=== PATIENT | male | born 1965 | race Caucasian/White ===

== ENCOUNTER 2018-04-01 11:03 | Emergency (ER) | payer MEDICAID, SELFPAY ==
[2018-04-01 11:03] VITALS: BP 148/84; PULSE 80; RESP 16; TEMP 36.4; BMI 21.1
[2018-04-01 11:35] VITALS: BP 135/70; PULSE 85; RESP 14; O2SAT 98
--- NOTE | 2018-04-01 12:14 | ED.VISSUMM ---
- ER Visit Summary Date of Service: 04/01/18 Chief Complaint: [Dental pain] History of Present Illness: The patient is a 52 M [presents the emergency department with 2-3 days of dental pain. It is on the left upper and lower gumline. No trauma or broken teeth. He has had dental problems in the past. No fevers or chills or facial swelling. He is a smoker. He denies any other health problems] Physical Examination: [] Blood pressure 135/70 HEENT exam reveals diffuse gingivitis. He has severely decayed left maxillary molar and canines. There is tenderness to tooth percussion. There is no fluctuant abscess to drain. There is no facial swelling no sublingual edema Stensen's duct is within normal limits there is no lymphadenopathy Test Results: [] Emergency Department Course and Treatment: [Patient will be given chlorhexidine rinses amoxicillin and Flagyl. Orders report will be pulled and if appropriate will be given [address] [place]. He was given referrals for dentist and instructions for which to return to the emergency department] Treatment Plan: [] Disposition: [Is charge] Impression: [Gingivitis, dental pain] This note was generated with [employer] dictation software. It may contain incorrect words, spelling, and punctuation that were not noted in review of the chart prior to signing ED Disposition - Plan for ED Patient: Chief Complaint: Dental Referrals: Boo Wang MD [Primary Care Provider] -
--- NOTE | 2018-04-01 12:17 | ED.DCSUM_ITS ---
- ER Visit Summary Date of Service: 04/01/18 Chief Complaint: [Dental pain] History of Present Illness: The patient is a 52 M [presents the emergency department with 2-3 days of dental pain. It is on the left upper and lower gumline. No trauma or broken teeth. He has had dental problems in the past. No fevers or chills or facial swelling. He is a smoker. He denies any other health problems] Physical Examination: [] Blood pressure 135/70 HEENT exam reveals diffuse gingivitis. He has severely decayed left maxillary molar and canines. There is tenderness to tooth percussion. There is no fluctuant abscess to drain. There is no facial swelling no sublingual edema Stensen's duct is within normal limits there is no lymphadenopathy Test Results: [] Emergency Department Course and Treatment: [Patient will be given chlorhexidine rinses amoxicillin and Flagyl. Orders report will be pulled and if appropriate will be given 7 [place]. He was given referrals for dentist and instructions for which to return to the emergency department] Treatment Plan: [] Disposition: [Is charge] Impression: [Gingivitis, dental pain] This note was generated with [employer] dictation software. It may contain incorrect words, spelling, and punctuation that were not noted in review of the chart prior to signing ED Disposition - Plan for ED Patient: Chief Complaint: Dental Referrals: Boo Wang MD [Primary Care Provider] -
--- NOTE | 2018-04-01 12:18 | ED.DEP ---
ED Disposition - Plan for ED Patient: Chief Complaint: Dental Instructions: ED Tooth Pain, ED Trench Mouth Prescriptions: Hydrocodone Bitart/Apap 5-325 [[place] 5MG-325MG] 1 tablet PO Q6H PRN PRN 3 Days #7 tablet PRN Reason: Pain Metronidazole [Flagyl] 500 mg PO Q8H #21 tablet Amoxicillin [Amoxil] 500 mg PO TID 10 Days tab.chew Referrals: Boo Wang MD [Primary Care Provider] - 3-5 Days
--- NOTE | 2018-04-01 12:21 | DCINST.ED_ITS ---
ED Disposition - Plan for ED Patient: Chief Complaint: Dental Instructions: ED Tooth Pain, ED Trench Mouth Prescriptions: Hydrocodone Bitart/Apap 5-325 [[place] 5MG-325MG] 1 tablet PO Q6H PRN PRN 3 Days # 7 tablet PRN Reason: Pain Metronidazole [Flagyl] 500 mg PO Q8H #21 tablet Amoxicillin [Amoxil] 500 mg PO TID 10 Days tab.chew Referrals: Boo Wang MD [Primary Care Provider] - 3-5 Days
[2018-04-01 12:34] VITALS: BP 132/70; PULSE 88; RESP 14; O2SAT 99
[2018-04-01] MEDS: HYDROcodone Bitartrate/Apap 5/325 Tablet PO (12:34)
== END 2018-04-01 12:37 | disposition home or self-care (01) ==
PROVIDERS: Emergency Provider Emergency Medicine; Family Provider Internal Medicine; PCP Internal Medicine
DX: K05.10 Chronic gingivitis, plaque induced (principal); K02.9 Dental caries, unspecified; K08.89 Other specified disorders of teeth and supporting structures; F17.200 Nicotine dependence, unspecified, uncomplicated
CPT/HCPCS: 99282; A4216

== ENCOUNTER 2018-05-12 17:00 | Outpatient (RCR) | payer MEDICAID, SELFPAY ==
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
== END 2018-05-12 19:00 | disposition home or self-care (01) ==
LOC: PT 17:00
PROVIDERS: Family Provider Internal Medicine; PCP Internal Medicine; Visit Provider Anesthesiology Pain Medicine
DX: M54.9 Dorsalgia, unspecified (principal); M79.606 Pain in leg, unspecified; M54.2 Cervicalgia; M79.603 Pain in arm, unspecified
CPT/HCPCS: 97110; 97113; 97162; 97530

== ENCOUNTER → 2018-09-08 13:24 | Outpatient (CLI) | payer MEDICAID, SELFPAY ==
--- NOTE | 2018-09-08 13:45 | MRI_ITS ---
STUDY: MRI LUMBAR SPINE WITHOUT CONTRAST REASON FOR EXAM: Male, 53 years old. Back pain and leg pain. TECHNIQUE: Standardized fat and water weighted pulse sequences were obtained in the sagittal and axial planes. COMPARISON: Lumbar spine radiographs 07/28/2017. FINDINGS: T11-T12: (Sagittal only). Normal endplates. Mild disc space height narrowing. Normal disc hydration and morphology. Normal central canal and bilateral intervertebral neural foramina. T12-L1: (Sagittal only). Normal endplates. Normal disc height, hydration and morphology. Normal central canal and bilateral intervertebral neural foramina. Normal lumbar lordosis. There is no substantial scoliosis. Normal conus medullaris that terminates at the T12-L1 disc level. L1-2: Normal endplates. Normal disc height, hydration and morphology. Normal bilateral facet joints. Normal central canal and bilateral lateral recesses. Normal bilateral intervertebral neural foramina. L2-3: Normal endplates. Normal disc height, hydration and morphology. Normal bilateral facet joints. Normal central canal and bilateral lateral recesses. Normal bilateral intervertebral neural foramina. L3-4: Normal endplates. Minimal disc space height narrowing with small posterior annular bulging disc. Mild central canal stenosis. The AP canal diameter is 9 mm. Normal bilateral lateral recesses. Normal facet joints. Normal bilateral intervertebral neural foramina. L4-5: Normal endplates. Normal disc height, hydration and morphology. Normal central canal and bilateral lateral recesses. Mild left degenerative facet arthropathy. Normal right facet joint. L5-S1: Normal endplates. Mild disc space height narrowing. Moderate loss of disc hydration. Grade 1 anterolisthesis of L5 on S1. Bilateral L5 pars defects. Normal central canal. Moderately pronounced stenosis of the right intervertebral neural foramen with impingement of the right L5 nerve (series 2, images 10-11). Mild stenosis of the left intervertebral neural foramen. No impingement of the left L5 nerve. Normal facet joints. Normal visualized sacral ala. Normal visualized paraspinous soft tissue structures. MRI/Spine Lumbar (Routine) IMPRESSION: 1. Bilateral L5 pars defects with grade 1 anterolisthesis of L5 on S1, moderate pronounced stenosis of the right intervertebral neural foramen and impingement of the right L5 nerve (series 2, images 10-11). 2. Mild left L4-L5 degenerative facet arthropathy. 3. Minimal L3-L4 disc space height narrowing with small posterior bulging disc and mild central canal stenosis. 4. No MRI evidence of lumbar extruded disc fragment. Electronically Signed: Eddi Jin MD at 16:23 EDT , Service support ,
== END ==
PROVIDERS: Family Provider Internal Medicine; PCP Internal Medicine; Referring Provider Anesthesiology Pain Medicine; Visit Provider Anesthesiology Pain Medicine
DX: M54.9 Dorsalgia, unspecified (principal); M79.606 Pain in leg, unspecified
CPT/HCPCS: 72148

== ENCOUNTER → 2019-01-12 11:39 | Outpatient (CLI) | payer MEDICAID, SELFPAY ==
[2019-01-12 11:07] VITALS: BMI 21.1
[2019-01-12 12:39] LABS: Absolute Lymphocyte Count 2.67 X10^3/ul (0.83-4.51); Basophil# 0.02 X10^3/uL; Basophil% 0.3 % (0-1); Eosinophil# 0.31 X10^3/uL; Eosinophils% 4.7 % (0-5); Hematocrit 39.8 % (40-54); Lymphocyte # 2.67 X10^3/ul (4.0); Lymphocyte % 40.8 % (19-41); Mean Corp Hgb Conc 32.7 g/gl (32-36); Mean Corpuscular Hgb 30.1 pg (27.0-32.0); Mean Corpuscular Volume 92.1 fL (80-94); Mean Platelet Vol. 9.1 fl (6.2-12.0); Monocyte# 0.57 X10^3/uL; Monocyte% 8.7 % (0-10); Neutrophil # 2.98 X10^3/uL (2.7-7.7); Neutrophil % 45.5 % (47-70); Platelet Count 279 K/mm3 (150-450); RBC Distribution Width CV 13.1 % (11.6-14.6); Red Blood Count 4.32 M/mm3 (4.6-6.2); White Blood Count 6.6 K/mm3 (4.4-11.0)
[2019-01-12 12:40] LABS: POSITIVE COUNT NO; POSITIVE DIFFERENTIAL NO; POSITIVE MORPHOLOGY NO
[2019-01-12 12:53] LABS: AST(SGOT) 29 U/L (15-37); Alanine Aminotransfer ALT/SGPT 35 U/L (16-61); Albumin, Serum 3.5 g/dL (3.2-5.0); Alkaline Phosphatase 76 U/L (45-117); Anion Gap 5 (5-15); BUN 16 mg/dL (7-18); BUN/Creat Ratio 19.4 RATIO (10-20); Calcium,Total 8.4 mg/dL (8.5-10.1); Chloride 103 mmol/L (98-107); Cholesterol 144 mg/dL (200); Creatinine, Serum 0.82 mg/dL (0.70-1.30); EST Glomerular Filtration Rate 104 mL/min (>60); Est Glom Filt Rate - Afr Amer 125 mL/min (>60); Globulin 3.4 g/dL (2.2-4.2); Glucose 78 mg/dL (74-106); High Density Lipoprotein 62 mg/dL; PSA,Total - Annual Screen 0.59 ng/mL (0.00-4.00); Potassium 3.9 mmol/L (3.5-5.1); Protein, Total 6.9 g/dL (6.4-8.2); Sodium Level 139 mmol/L (136-145); Triglycerides 104 mg/dL; Very Low Density Lipoprotein 21 mg/dL (5-40)
== END ==
PROVIDERS: Family Provider Internal Medicine; PCP Internal Medicine; Visit Provider Internal Medicine
DX: Z00.00 Encounter for general adult medical examination without abnormal findings (principal); Z12.5 Encounter for screening for malignant neoplasm of prostate
CPT/HCPCS: 36415; 80053; 80061; 84153; 85025; G0103

== ENCOUNTER → 2019-03-02 07:17 | Outpatient (CLI) | payer MEDICAID, SELFPAY ==
[2018-12-15 13:58] VITALS: BMI 21.1
[2019-01-12 11:07] VITALS: BMI 21.1
== END ==
PROVIDERS: Family Provider Internal Medicine; PCP Internal Medicine; Referring Provider Surgery; Visit Provider Surgery
DX: Z01.818 Encounter for other preprocedural examination (principal)

== ENCOUNTER → 2019-03-09 09:22 | Outpatient (CLI) | payer MEDICAID, SELFPAY ==
[2019-03-09 09:01] VITALS: BMI 21.1
--- NOTE | 2019-03-09 09:27 | RAD_ITS ---
STUDY: X-RAY - LUMBAR SPINE REASON FOR EXAM: Male, 53 years old. Pain. TECHNIQUE: 4 view(s) of the lumbar spine were obtained. COMPARISON: None FINDINGS: There is grade 1 L5-S1 listhesis. This probably is secondary to bilateral L5 spondylolysis however oblique images are not submitted to validate that. There is mild to moderate L5-S1 degenerative disc disease. There is minimal spondylosis throughout. There is no acute osseous abnormality. There is stable positioning on extension and flexion relative to neutral. There is no substantial scoliosis. The soft tissue structures are unremarkable. RAD/L/S Spine Min 4 Views IMPRESSION: Probably degenerative grade 1 L5-S1 listhesis. However oblique images are not obtained on this exam to evaluate if the listhesis is secondary to L5 spondylolysis. Minimal diffuse spondylosis. No evident acute osseous abnormality. Minimal bilateral hip osteoarthrosis. Mild L5-S1 degenerative disc disease. Electronically Signed: Jefry Boyd MD at 16:34 EDT , Service support ,
== END ==
PROVIDERS: Family Provider Internal Medicine; PCP Internal Medicine; Referring Provider Orthopaedic Surgery; Visit Provider Orthopaedic Surgery
DX: M54.5 Low back pain (principal)
CPT/HCPCS: 72110

== ENCOUNTER 2019-04-21 09:30 | Outpatient (RCR) | payer MEDICAID, SELFPAY ==
[2019-03-19 15:05] VITALS: BMI 21.1
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
== END 2019-04-21 19:00 | disposition home or self-care (01) ==
LOC: OT 09:30
PROVIDERS: Family Provider Internal Medicine; PCP Internal Medicine; Referring Provider Nurse Practitioner Family; Visit Provider Nurse Practitioner Family
DX: M54.9 Dorsalgia, unspecified (principal); G89.29 Other chronic pain
CPT/HCPCS: 97165; 97166; 97750

== ENCOUNTER → 2019-05-18 07:28 | Outpatient (CLI) | payer MEDICAID, SELFPAY ==
[2019-05-12 14:14] VITALS: BMI 21.1
--- NOTE | 2019-05-18 07:30 | RAD_ITS ---
STUDY: X-RAY - CERVICAL SPINE REASON FOR EXAM: Male, 53 years old. Neck pain. TECHNIQUE: 3 view(s) of the cervical spine were obtained. COMPARISON: None FINDINGS: Normal anterior atlantoaxial articulation. Normal odontoid process. Normal cervical lordosis. Normal vertebral bodies and endplates. Normal disc space heights. There are atherosclerotic vascular calcifications of the carotid arteries. There is no demonstrated fracture of the cervical spine. RAD/Cerv Spine 2 or 3 Views IMPRESSION: No significant abnormality. Electronically Signed: Addy Arteaga MD at 16:58 EDT , Service support ,
== END ==
PROVIDERS: Family Provider Internal Medicine; PCP Internal Medicine; Referring Provider Internal Medicine; Visit Provider Internal Medicine
DX: M54.2 Cervicalgia (principal)
CPT/HCPCS: 72040

== ENCOUNTER 2020-01-24 09:45 | Emergency (ER) | payer MEDICAID, SELFPAY ==
[2019-05-12 14:14] VITALS: BMI 21.1
[2020-01-24 09:46] VITALS: BP 126/72; PULSE 71; RESP 17; TEMP 36.8; O2SAT 98; BMI 20.4
--- NOTE | 2020-01-24 09:59 | CT_ITS ---
STUDY: CT ABDOMEN AND PELVIS WITHOUT CONTRAST REASON FOR EXAM: Male, 54 years old. N/V X 1 WEEK, MIDDLE ABD PAIN RADIATION DOSAGE (If Supplied By Facility): CTDIvol = ( 4.31 ) mGy, DLP = ( 185.38 ) mGycm TECHNIQUE: Transaxial images were obtained from the dome of the diaphragm to the symphysis pubis without oral contrast, and without intravenous contrast. Sagittal and coronal images were reconstructed. Individualized dose optimization techniques were used for this CT. COMPARISON: None. FINDINGS: There is evidence of emphysematous changes at the lung bases. Mild scarring in the anterior aspect of the right lower lobe. The visualized portions of the heart are within normal limits. There is a 7 cm x 4.4 cm fluid collection in the subcapsular space overlying the right lobe of the liver. This may represent a resolving subcapsular hematoma. Normal gallbladder and extrahepatic biliary system. Normal spleen. Normal pancreas. Normal bilateral adrenal glands. Normal right kidney. Normal left kidney. Normal visualized stomach. Normal small intestine. There are multiple colonic diverticula consistent with diverticulosis. The appendix is visualized and appears normal. There is diffuse atherosclerotic calcification of the abdominal aorta, without a demonstrated aneurysm. Normal inferior vena cava. Normal retroperitoneum. Normal urinary bladder. There are prostatic calcifications. Phleboliths are seen within the pelvis. Normal abdominal wall. There are degenerative changes of the visualized lumbar spine. There is a grade 1 spondylolisthesis of L5 on S1 with spondylolysis of the pars interarticularis of the L5 vertebrae with the space narrowing and disc degeneration at the L5-S1 level. CT/Abdomen/Pelvis without Cont IMPRESSION: Findings suggestive of a 7 cm x 4.4 cm fluid collection in the subcapsular space overlying the right lobe of the liver as described. This may represent a resolving hematoma. Electronically Signed: Saturnino Miller, at 11:35 EDT , Service support ,
[2020-01-24 10:04] LABS: Absolute Lymphocyte Count 1.76 X10^3/uL (0.83-4.51); Absolute Neutrophil Count 4.7 X10^3/uL (2.0-7.7); Basophil# 0.03 X10^3/uL; Basophil% 0.4 % (0-1); Eosinophil# 0.22 X10^3/uL; Hematocrit 41.1 % (40-54); Hemoglobin 13.5 g/dL (13.0-16.5); Lymphocyte # 1.76 X10^3/ul (4.0); Lymphocyte % 24.3 % (19-41); Mean Corp Hgb Conc 32.8 g/dL (32-36); Mean Corpuscular Hgb 29.3 pg (27.0-32.0); Mean Corpuscular Volume 89.3 fL (80-94); Mean Platelet Vol. 8.8 fl (6.2-12.0); Monocyte# 0.52 X10^3/uL; Monocyte% 7.2 % (0-10); NRBC Flagged by Analyzer 0 % (0-5); Neutrophil # 4.71 X10^3/uL (2.7-7.7); Platelet Count 309 K/mm3 (150-450); RBC Distribution Width CV 14.1 % (11.6-14.6); RBC Distribution Width SD 45.7 fl (35.1-43.9); White Blood Count 7.3 K/mm3 (4.4-11.0)
[2020-01-24] MEDS: 0.9% Normal Saline 1,000 ML 1000 ML IV (10:10)
[2020-01-24] MEDS: Ondansetron 4 MG/2 ML Vial IV (10:11)
[2020-01-24 10:32] LABS: ALB/GLOB Ratio 1.2 RATIO (0.9-2.4); AST(SGOT) 13 U/L (15-37); Alanine Aminotransfer ALT/SGPT 22 U/L (16-61); Albumin, Serum 3.7 g/dL (3.2-5.0); Alkaline Phosphatase 52 U/L (45-117); Anion Gap 4 (5-15); BUN 15 mg/dL (7-18); BUN/Creat Ratio 18.3 RATIO (10-20); Calcium,Total 8.6 mg/dL (8.5-10.1); Chloride 103 mmol/L (98-107); Creatinine, Serum 0.82 mg/dL (0.70-1.30); EST Glomerular Filtration Rate 104 mL/min (>60); Est Glom Filt Rate - Afr Amer 125 mL/min (>60); Estimated Creatinine Clearance 86.23 ml/min; Globulin 3.1 g/dL (2.2-4.2); Glucose 96 mg/dL (74-106); Lipase 327 U/L (73-393); Potassium 3.7 mmol/L (3.5-5.1); Protein, Total 6.8 g/dL (6.4-8.2); Sodium Level 140 mmol/L (136-145)
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
--- NOTE | 2020-01-24 11:11 | EKG12_ITS ---
Test Reason : Blood Pressure : / mmHG Vent. Rate : 060 BPM Atrial Rate : 060 BPM P-R Int : 148 ms QRS Dur : 098 ms QT Int : 592 ms P-R-T Axes : 084 020 013 degrees QTc Int : 592 ms Normal sinus rhythm with sinus arrhythmia Nonspecific T wave abnormality Abnormal ECG Confirmed by OMEGA VALENZUELA, HSELLY ([id number]), material expeditor MANJU JOHNSON ([id number]) on 01/25/2020 1:39:54 PM Referred By: GREGORY Confirmed By:SHELLY DUFF MD
--- NOTE | 2020-01-24 12:27 | DCINST.ED_ITS ---
ED Disposition - Plan for ED Patient: Instructions: VOMITING (6y-Adult), ABDOMINAL PAIN, Unkown Cause, (Male) Prescriptions: Ondansetron [Zofran Odt] 4 mg PO Q8H PRN PRN #10 tab PRN Reason: Nausea Transmission Status: Pending to [id number] Referrals: Boo Wang MD [Primary Care Provider] - 3-5 Days
[2020-01-24 13:01] VITALS: BP 129/76; PULSE 62; RESP 14
[2020-01-24 13:03] VITALS: BP 129/76; PULSE 62; RESP 14
== END 2020-01-24 13:05 | disposition home or self-care (01) ==
LOC: ED 11:10
PROVIDERS: Emergency Provider Emergency Medicine; PCP Internal Medicine
DX: R11.0 Nausea (principal); R10.9 Unspecified abdominal pain; Z72.0 Tobacco use
CPT/HCPCS: 74176; 80053; 83690; 84484; 85025; 93005; 96361; 96374; 99283; J7030; A4216; J2405

== ENCOUNTER 2021-10-28 13:34 | Emergency (ER) | payer MEDICAID, SELFPAY ==
[2021-10-28 13:36] VITALS: BP 138/59; PULSE 101; RESP 18; TEMP 37.1; O2SAT 100; BMI 22.1
--- NOTE | 2021-10-28 13:53 | ED.RN ---
pt reports he cannot wait to be seen for his dental pain and that he is leaving.
== END 2021-10-28 13:40 | disposition left against medical advice (07) ==
LOC: ED 13:41
PROVIDERS: PCP Internal Medicine
DX: K08.89 Other specified disorders of teeth and supporting structures (principal); Z53.21 Procedure and treatment not carried out due to patient leaving prior to being seen by health care provider

== ENCOUNTER 2023-11-09 19:32 | Emergency (ER) | payer MEDICAID, SELFPAY ==
[2023-11-09 19:33] VITALS: BP 159/107; PULSE 104; RESP 18; TEMP 36.1; O2SAT 97; BMI 20.8
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
[2023-11-09 20:46] LABS: Absolute Lymphocyte Count 1.93 X10^3/uL (0.83-4.51); Absolute Neutrophil Count 5.6 X10^3/uL (2.0-7.7); Basophil# 0.03 X10^3/uL; Basophil% 0.4 % (0-1); Eosinophil# 0.02 X10^3/uL; Eosinophils% 0.2 % (0-5); Hematocrit 52.1 % (40-54); Lymphocyte # 1.93 X10^3/ul (0.83-4.51); Lymphocyte % 23.1 % (19-41); Mean Corp Hgb Conc 32.6 g/dL (32-36); Mean Corpuscular Hgb 29.2 pg (27.0-32.0); Mean Corpuscular Volume 89.4 fL (80-94); Mean Platelet Vol. 9.2 fl (6.2-12.0); Monocyte# 0.74 X10^3/uL; Monocyte% 8.8 % (0-10); NRBC Flagged by Analyzer 0 % (0-5); Neutrophil # 5.63 X10^3/uL (2.7-7.7); Neutrophil % 67.3 % (47-70); Platelet Count 352 K/mm3 (150-450); RBC Distribution Width CV 13.1 % (11.6-14.6); RBC Distribution Width SD 42.6 fl (35.1-43.9); Red Blood Count 5.83 M/mm3 (4.6-6.2); White Blood Count 8.4 K/mm3 (4.4-11.0)
[2023-11-09] MEDS: Ondansetron 4 MG/2 ML Vial IV (20:48)
[2023-11-09] MEDS: 0.9% Normal Saline (1000mL) 1,000 ML 1000 ML IV (20:48)
[2023-11-09] MEDS: Morphine 4 MG/ML Syringe IV (20:49)
[2023-11-09 21:16] LABS: AST(SGOT) 15 U/L (15-37); Alanine Aminotransfer ALT/SGPT 20 U/L (16-61); Albumin, Serum 3.9 g/dL (3.2-5.0); Alkaline Phosphatase 64 U/L (45-117); Anion Gap 5 (5-15); BUN 20 mg/dL (7-18); BUN/Creat Ratio 18.5 RATIO (10-20); Chloride 95 mmol/L (98-107); Creatinine, Serum 1.08 mg/dL (0.70-1.30); EST Glomerular Filtration Rate 75 mL/min (>60); Est Glom Filt Rate - Afr Amer 90 mL/min (>60); Estimated Creatinine Clearance 63.62 ml/min; Globulin 4.1 g/dL (2.2-4.2); Glucose 92 mg/dL (74-106); Lipase 79 U/L (13-75); Potassium 4.3 mmol/L (3.5-5.1); Sodium Level 133 mmol/L (136-145)
--- NOTE | 2023-11-09 22:00 | CT_ITS ---
STUDY: CT ABDOMEN AND PELVIS WITH CONTRAST REASON FOR EXAM: Male, 58 years old. Abdominal pain -- IV PO Contrast RADIATION DOSAGE (If Supplied By Facility): CTDIvol = ( 7.63 ) mGy, DLP = ( 302.61 ) mGycm TECHNIQUE: Transaxial images were obtained from the dome of the diaphragm to the symphysis pubis without oral contrast. Oral and amp; IV Gastrografin and amp; 100mL Isovue-300 was administered. Sagittal and coronal images were reconstructed. Individualized dose optimization techniques were used for this CT. COMPARISON: 01/24/2020. FINDINGS: The visualized lung bases are unremarkable. The visualized portions of the heart are within normal limits. Redemonstrated is cystic/fluid collection along the lateral aspect of the right liver lobe measuring 9.0 x 6.0 cm, minimal increased in size in the interval. Additional low-attenuation structures with Hounsfield units suggestive of liver cysts, largest in the left liver lobe measuring 1 cm, new in the interval. Remainder of the liver unremarkable. Slightly over distended gallbladder otherwise unremarkable gallbladder. No significant biliary distention. Normal spleen. Normal pancreas. Normal bilateral adrenal glands. Normal right kidney. Left upper no pole simple cyst measuring 1.3 cm. Otherwise normal left kidney. Normal visualized stomach. Normal small intestine. Normal colon. The appendix is visualized and appears normal. There is diffuse atherosclerotic calcification of the abdominal aorta, without a demonstrated aneurysm. Normal inferior vena cava. Normal retroperitoneum. There is slightly over distended. Mild prostate enlargement. Normal abdominal wall. Mild multilevel spondylosis/degenerative disease. Grade 1 anterolisthesis of L5 on S1 with bilateral pars defect of L5. CT/Abdomen/Pelvis WITH Contrast IMPRESSION: Multiple cystic structures at the level of the liver, largest measuring up to 9.0 cm, slightly progressed in the interval. Left upper renal pole simple cyst, no further follow-up imaging recommended. Otherwise no acute process identified. Electronically Signed: Jeaneth Calderon MD at 22:43 EST ,
[2023-11-09 22:26] LABS: Bacteria 0 SEEN /hpf (None Seen); Mucous, Urine 0 SEEN /hpf (<or=2+); Red Blood Cells-Urine 0 SEEN /hpf (0-5); Squamous Epithelial Cells - UA 0 SEEN /hpf (0-5); White Blood Cells 0 SEEN /hpf (0-5)
[2023-11-09 22:32] LABS: Color, Urine Yellow (Yellow); Glucose, Dipstick Normal (Normal); Ketone-Dipstick 50 mg/dl (Negative); Leukocyte Esterase-Dipstick Negative /ul (Negative); Nitrite-Dipstick Negative (Negative); Occult Blood-Urine 10 /ul (Negative); Protein-Dipstick Negative (Negative); Urine Bilirubin Dipstick Negative (Negative); Urine Clarity Clear (Clear); Urine Urobilinogen Normal (Normal)
[2023-11-10] MEDS: Morphine 4 MG/ML Syringe IV (00:16)
[2023-11-10 00:38] VITALS: BP 144/88; PULSE 89; RESP 16; O2SAT 97
== END 2023-11-10 00:40 | disposition home or self-care (01) ==
PROVIDERS: Emergency Provider Emergency Medicine; PCP Internal Medicine; Visit Provider Emergency Medicine
DX: R10.13 Epigastric pain (principal); J44.9 Chronic obstructive pulmonary disease, unspecified; N28.1 Cyst of kidney, acquired; K76.89 Other specified diseases of liver; R53.1 Weakness; R11.2 Nausea with vomiting, unspecified; M54.9 Dorsalgia, unspecified; F17.210 Nicotine dependence, cigarettes, uncomplicated
CPT/HCPCS: 74177; 80053; 81001; 83690; 85025; 96361; 96374; 96375; 96376; 99283; Q9967; A4216; J2405

== ENCOUNTER → 2025-06-06 | Outpatient (CLI) | payer MEDICAID, SELFPAY ==
--- OUTSIDE RECORDS SUMMARY | 2025-06-06 11:24 | XMS RPT_ITS | CCD ---
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 Encounter Date Encounter Type Care Provider Facility Start: 06-06-2025 End: 06-06-[address] Boo Wang MD Work Phone: [facility] Start: 06-06-2025 End: 06-06-[address] Boo Wang MD -[facility] Work Phone: Start: 01-07-2024 End: 01-07-2024 ambulatory Boo Wang [facility] Start: 11-09-2023 End: 11-10-2023 Emergency department patient visit [facility] Facility:[facility] Start: 11-09-2023 End: 11-10-2023 Emergency department patient visit [facility] Work Phone: Start: 10-28-2021 End: 10-28-2021 Emergency department patient visit LANA EVANGELISTA MD [facility] Start: 05-22-2017 End: 05-23-2017 Ambulatory JUD BermanMichael SAHRA Facility:[facility] Start: 03-17-2015 End: 03-17-2015 Emergency department patient visit [facility] Facility:[facility] Procedures Date Procedure Procedure Detail Performing Clinician Start: 11-09-2023 Computed tomography of abdomen and pelvis with contrast Start: 06-26-2017 End: 07-31-2017 *CBC with Differential Boo whitley MD Work Phone: Start: 06-26-2017 End: 07-31-2017 *CMP Complete Metabolic Panel Boo Wang MD Work Phone: Start: 06-26-2017 End: 07-29-2017 Electrocardiogram Boo Adam Work Phone: Start: 06-26-2017 End: 07-29-2017 Follow Up Appt 1 month Boo whitley MD Work Phone: Start: 06-26-2017 End: 07-31-2017 HbA1c Boo Adam Work Phone: Start: 06-26-2017 End: 07-31-2017 Lipid panel [AGGREGATE] Boo wallace MD Work Phone: Start: 06-26-2017 End: 07-31-2017 PSA Boo Adam Work Phone: Start: 06-26-2017 Screening for cancer Screening for cancer Boo Adam Start: 06-26-2017 Screening for malignant neoplasm of colon Screening for colon cancer Boo Wang MD Start: 06-26-2017 Thyroid disorder screening Screening for thyroid disorder Boo Wang MD Start: 06-26-2017 End: 07-31-2017 Thyroid stimulating hormone (TSH) Boo Wang MD Work Phone: Start: 06-26-2017 End: 07-31-2017 Thyroxine (T4) free Boo Adam Work Phone: Start: 06-26-2017 End: 07-29-2017 X-ray exam of lower spine Boo ahn MD Work Phone: Start: 06-26-2017 End: 07-29-2017 X-ray exam of neck spine Boo medina MD Work Phone: Start: 06-26-2017 End: 07-29-2017 X-ray exam of thoracic spine Boo Wang MD Work Phone: Plan of Treatment Date Care Activity Detail Author Start: 06-06-2025 CBC W Auto Differential panel - Blood [facility] Start: 06-06-2025 Comprehensive metabolic 2000 panel - Serum or Plasma [facility] Start: 06-06-2025 Lipid 1996 panel - Serum or Plasma [facility] Start: 06-06-2025 Prostate specific antigen measurement [facility] Start: 11-09-2023 [facility] Start: 09-12-2017 End: 09-12-2017 Appointment Appointment [facility] Work Phone: Start: 08-01-2017 End: 08-01-2017 Appointment Appointment [facility] Work Phone: Start: 08-01-2017 End: 08-08-2017 Echocardiography Echocardiogram (complete) [facility] Work Phone: Start: 08-01-2017 End: 08-01-2017 Follow Up Appt 6 weeks Follow Up Appt 6 weeks [facility] Work Phone: Start: 08-01-2017 End: 08-01-2017 Pain Management Referral Pain Management Referral Eufemiaalfred Dudley Saleem, [address] [place] [address], [address], [place], [address] [facility] Work Phone: Start: 08-01-2017 End: 08-08-2017 Pulmonary Function Test - complete Pulmonary Function Test - complete [facility] Work Phone: Start: 07-30-2017 End: 07-30-2017 Appointment Appointment [facility] Work Phone: Start: 06-26-2017 End: 06-26-2017 Appointment Appointment [facility] Work Phone: Start: 06-26-2017 End: 07-29-2017 *CBC with Differential *CBC with Differential [facility] Work Phone: Start: 06-26-2017 End: 07-29-2017 *CMP Complete Metabolic Panel *CMP Complete Metabolic Panel [facility] Work Phone: Start: 06-26-2017 End: 07-29-2017 *EKG (Done in Hospital) *EKG (Done in Hospital) [facility] Work Phone: Start: 06-26-2017 End: 06-26-2017 DONNELL DONNELL [facility] Work Phone: Start: 06-26-2017 End: 06-26-2017 CT Ldct scan for lung cancer screening CT Ldct scan for lung cancer screening [facility] Work Phone: Start: 06-26-2017 End: 07-29-2017 Follow Up Appt 1 month Follow Up Appt 1 month [facility] Work Phone: Start: 06-26-2017 End: 07-29-2017 HbA1c *HgA1C [facility] Work Phone: Start: 06-26-2017 End: 07-29-2017 Lipid panel [AGGREGATE] *Lipid Profile [facility] Work Phone: Start: 06-26-2017 End: 07-29-2017 PSA *PSA (Prostate Specific Antigen) [facility] Work Phone: Start: 06-26-2017 End: 06-27-2017 Surgery Referral Surgery Referral Esthela Weinstein MD, [facility], [address] [place] [address], [place], [address] [facility] Work Phone: Start: 06-26-2017 End: 07-29-2017 Thyroid stimulating hormone (TSH) *TSH [facility] Work Phone: Start: 06-26-2017 End: 07-29-2017 Thyroxine (T4) free *T4 free [facility] Work Phone: Start: 06-26-2017 End: 07-29-2017 X-ray exam of lower spine X-Ray, Spine, Lumbosacral 2-3 views [facility] Work Phone: Start: 06-26-2017 End: 07-29-2017 X-ray exam of neck spine X-Ray, Spine, Cervical 2-3 views [facility] Work Phone: Start: 06-26-2017 End: 07-29-2017 X-ray exam of thoracic spine X-Ray, Spine, Thoracic, 2 views [facility] Work Phone: Alanine aminotransfe rase [Enzymatic activity/volume] in Serum or Plasma [facility] Albumin [Mass/volume ] in Serum or Plasma [facility] Alkaline phosphatase [Enzymatic activity/volume] in Serum or Plasma [facility] Anion gap in Serum o r Plasma [facility] Bilirubin, total measurement [facility] BUN/Creatinine ratio [facility] Calcium [Mass/volume ] in Serum or Plasma [facility] Carbon dioxide, tota l [Moles/volume] in Central venous blood [facility] Cholesterol [Mass/vo lume] in Serum or Plasma [facility] Cholesterol in HDL [Mass/volume] in Serum or Plasma [facility] Creatinine [Mass/vol ume] in Serum or Plasma [facility] Erythrocyte mean corpuscular volume determination [facility] Glucose [Mass/volume ] in Serum or Plasma [facility] Hematocrit [Volume Fraction] of Blood [facility] Hemoglobin [Mass/vol ume] in Blood [facility] Leukocytes [#/volume ] in Blood [facility] Low density lipoprot ein cholesterol measurement [facility] Mean corpuscular hemoglobin concentration determination [facility] Mean corpuscular hemoglobin determination [facility] Measurement of renal function [facility] Neutrophil count [facility] Neutrophil percent differential count [facility] Patient Education ED Abdominal P ain Unkn Cause Male... [facility] Work Phone: Patient referral [facility] Work Phone: Platelets [#/volume] in Blood [facility] Potassium measurement [facility] Red blood cell count [facility] Red cell distributio n width determination [facility] Serum chloride measurement [facility] Sodium measurement [facility] Total cholesterol:HD L ratio measurement [facility] Total protein measurement [facility] Triglycerides measurement [facility] Urea nitrogen [Mass/volume] in Serum or Plasma [facility] VLDL cholesterol measurement [facility] XR Cervical spine 2 or 3 Views [facility] XR Spine Lumbar and Sacrum GE 4 Views [facility] Immunizations Immunization Date Immunization Notes Care Provider Sage mcdonald 06-06-[address] Boo Wang MD Work Phone: [facility] Payers Date Payer Category Payer Self-pay 2017 Unknown [employer] [id number] 2017 Unknown [id number] Unknown [id number] Unknown [id number] Social History Date Type Detail Facility Start: 11-09-2023 Tobacco smoking stat [facility] Unknown if ever smoked [facility] Start: 1965 Sex Assigned At Male [facility] Start: 01-07-2024 Tobacco smoking stat [facility] Current Light tobacco smoker [facility] Mental Status Date Assessment Result Facility 11-09-2023 Cognitive function Level Of Cons ciousness Awake;Alert [facility] Work Phone: Hospital Discharge instructions 10-28-2021 Note Date & Type Note Facility 10-28-2021 Hospital Discharg e instructions Patient Education 10/28/2021 14:52:35 Dental Abscess Dental Abscess An abscess is a sac of pus. A dental abscess forms when a tooth or the tissue around it becomes infected with bacteria. The bacteria can enter through a cavity or a crack in a tooth. It can also infect the gum tissue or bone around a tooth. An untreated abscess can cause the loss of the tooth. It can even spread to other parts of the body and become life-threatening. Symptoms of a dental abscess Signs of a dental abscess include: Toothache, often severe Tooth pain with hot, cold, or pressure Pain in the gums, cheek, or jaw Bad breath or bitter taste in the mouth Trouble swallowing or opening the mouth Fever Swollen or enlarged glands in the neck Diagnosing a dental abscess An abscess is diagnosed by looking at your teeth and gums. You will be told if any tests are needed, such as dental X-rays. Treating a dental abscess Treatments for a dental abscess may include the following: Antibiotic medicines. These treat the underlying infection. Pain relievers. These help you feel more comfortable. Your healthcare provider may prescribe a medicine for you. Or you may use nwti-hxn-zcrjleh pain relievers, such as acetaminophen or ibuprofen. Warm saltwater rinses. These can soothe discomfort and help clear away pus. Root canal surgery. This may be done if needed to save the tooth. With a root canal, the infected part of the tooth is removed. A special substance is then used to fill the empty space in the tooth. Draining the abscess. This may be doneif needed. Incisions are made to allow the infected material to drain from the tooth. Removing the tooth. This is done in cases of severe infection that can t be treated another way. You may need to be admitted to a hospital if the infection is severe, has spread, or doesn t respond to treatment. When to call the dentist Call your dentist right away if you have any of the following: Fever of 100.4 F (38 C) or higher Increased pain, redness, drainage, or swelling in the treated area Swelling of the face or jawbone Pain that can't be controlled with medicines Preventing dental abscess To prevent another abscess in the future, keep your teeth clean and healthy. [place] twice a day and floss at least once daily. See your dentist for regular tooth cleanings. And stay away from sugary foods and drinks that can lead to tooth decay. [id number] [employer]. [address] [place] [address]. All rights reserved. This information is not intended as a substitute for professional medical care. Always follow your healthcare professional's instructions. Follow Up Care 10/28/2021 14:01:12 With:dental list Address: When:2-4 days [facility] Evaluation + Plan note Note Date & Type Note Facility Evaluation + Plan note No data available for this section [facility] Evaluation note Note Date & Type Note Facility Evaluation note No assessment information availa [facility] Work Phone: Hospital Discharge instructions Note Date & Type Note Facility Hospital Discharge instructions Ambulatory OrdersGeneral Surgery Location: None Selected [facility] Work Phone: Summary Purpose Family History Relationship Condition Age at Onset Recorded Date/T mary mother Hypertension Unknown Malignant neoplasm Unknown father Malignant neoplasm Unknown Hypertension Unknown brother Cardiac disease Unknown Advance Directives Advance Directive Response Recorded Date/ Time Living Will No November 09 023 8:12pm Power of Conversion Developer No November 09, 2023 8:12pm Chief Complaint and Reason for Visit Chief Complaint ABD PAIN Chief Complaint Admit Date 5 M FU June 06, 2025 7:43 am ` June 06, 2025 8:35 am Additional Source Comments (unrecognized sect ion and content) No Status Records FoundNo Status Records FoundNo Status Records Found INFORMATION SOURCE (unrecogn ized section and content) DATE CREATED AUTHOR 05/13/2018 [facility] DATE CREATED AUTHOR AUTHOR'S ORGANIZ ATION 05/13/2018 [facility] DATE CREATED AUTHOR AUTHOR'S ORGANIZ ATION 01/14/2024 [facility] Care Teams (unrecognized sec tion and content) Team Status: Active Member Role Status Dates Dr. Boo Wang MD Family Provider Active Dr. Boo Wang MD Primary Care Provider Active Team Status: Inactive Member Role Status Dates Dr. Boo Wang MD Primary Care Provider Active Dr. Gabriel Baldwin DO Emergency Provider Active Team Status: Active Member Role/Relationship Status Dates Dr. Boo Wang MD Family Provider Active Dr. Boo Wang MD Primary Care Provider Active Team Status: Inactive Member Role/Relationship Status Dates Dr. Boo Wang MD Primary Care Provider Active Start: June 06, 2025 End: June 06, 2025 Dr. Boo Wang MD Attending Provider Active Start: June 06, 2025 End: June 06, 2025 Dr. Boo Wang MD Referring Provider Active Start: June 06, 2025 End: June 06, 2025 Team Status: Active Member Role/Relationship Status Dates Dr. Boo Wang MD Primary Care Provider Active Start: June 06, 2025 Dr. Boo Wang MD Attending Provider Active Start: June 06, 2025 Dr. Boo Wang MD Referring Provider Active Start: June 06, 2025 Goals (unrecognized section and content) Goals may be documented in a n alternate section FOR RECORDS PERTAINING TO PATIENTS WHO ARE OR HAVE BEEN ENROLLED IN A CHEMICAL DEPENDENCY/SUBSTANCEABUSE PROGRAM, SOME INFORMATION MAY BE OMITTED. This clinical summary was aggregated from multiple sources. Caution should be exercised in using it in the provision of clinical care. This summary normalizes information from multiple sources, and as a consequence, information in this document may materially change the coding, format and clinical context of patient data. In addition, data may be omitted in some cases. CLINICAL DECISIONS SHOULD BE BASED ON THE PRIMARY CLINICAL RECORDS. [facility] [employer] provides no warranty or guarantee of the accuracy or completeness of information in this document.
[2025-06-06 12:40] LABS: Hematocrit 39.9 % (40-54); Hemoglobin 13.2 g/dL (13.0-16.5); Immature Granulocytes Count 0.020 X10^3/uL (0.0-0.0); Mean Corp Hgb Conc 33.1 g/dL (32-36); Mean Corpuscular Volume 91.9 fL (80-94); Mean Platelet Vol. 10.1 fl (6.2-12.0); NRBC Flagged by Analyzer 0 % (0-5); Platelet Count 292 K/mm3 (150-450); RBC Distribution Width CV 14.1 % (11.6-14.6); RBC Distribution Width SD 47.9 fl (35.1-43.9); Red Blood Count 4.34 M/mm3 (4.6-6.2); White Blood Count 6.8 K/mm3 (4.4-11.0)
[2025-06-06 13:37] LABS: AST(SGOT) 23 U/L (<=37); Alanine Aminotransfer ALT/SGPT 13 U/L (<=46); Albumin, Serum 4.2 g/dL (3.4-4.8); Alkaline Phosphatase 76 U/L (40-129); Anion Gap 11 (5-15); BUN 19 mg/dL (4-19); BUN/Creat Ratio 18.7 RATIO (10-20); Calcium,Total 9.3 mg/dL (7.6-11.0); Carbon Dioxide 26.2 mmol/L (21.0-32.0); Chloride 103 mmol/L (98-108); Cholesterol 157 mg/dL (<=200); Globulin 2.5 g/dL (2.2-4.2); Glucose 82 mg/dL (70-99); Low Density Lipoprotein Calc. 64 mg/dL; PSA,Total - Annual Screen 0.87 ng/mL (0.02-4.00); Potassium 3.8 mmol/L (3.3-5.1); Triglycerides 182 mg/dL; Very Low Density Lipoprotein 36 mg/dL (5-40); cholesterol:hdl ratio screen 2.75
== END | disposition home or self-care (01) ==
LOC: BIMLAB 08:35
PROVIDERS: PCP Internal Medicine; Referring Provider Internal Medicine; Visit Provider Internal Medicine
DX: J44.9 Chronic obstructive pulmonary disease, unspecified (principal); Z12.5 Encounter for screening for malignant neoplasm of prostate; Z13.6 Encounter for screening for cardiovascular disorders
CPT/HCPCS: 84153; 36415; 80053; 80061; 85025; G0103

== ENCOUNTER 2025-07-10 14:31 | Emergency (ER) | payer MEDICAID, SELFPAY ==
[2025-07-10 14:31] VITALS: BP 104/75; PULSE 76; RESP 14; TEMP 36.6; O2SAT 94; BMI 20.6
--- NOTE | 2025-07-10 15:01 | CT_ITS ---
PROCEDURE: ABDOMEN/PELVIS W IV CONT ONLY 07/10/2025 REASON FOR EXAM: NAUSEA AND VOMITING TECHNIQUE: ABDOMEN/PELVIS W IV CONT ONLY Coronal and Sagittal reconstruction series were provided. CONTRAST: Isovue 370 VOLUME: 100 mL One or more dose reduction techniques were used (e.g., Automated exposure control, adjustment of the mA and/or kV according to patient size, use of iterative reconstruction technique. RADIATION DOSE SUMMARY: CTDlvol: 12.57 mGy DLP: 504 mGycm COMPARISON: 11/09/2023 FINDINGS: Lung bases: Clear Liver: Stable cystic collection anterior to the right lobe of the liver again measuring a proximally 9 x 6 cm. Stable simple hepatic cysts, no new suspicious mass lesion or abnormal enhancement. Gallbladder: Unremarkable Spleen: Normal size. Pancreas: Normal size without evidence of mass surrounding inflammation or ductal dilation. Adrenals: Unremarkable Kidneys: No obstructive uropathy or suspicious solid renal lesion Bladder: Distends normally Bowel: No CTA evidence of obstruction, retained stool noted throughout the entirety of the colon, scattered colonic diverticula without CT evidence of acute diverticulitis. Submucosal thickening and edema in the gastric antrum and pyloric channel suggesting gastritis Appendix: Appendix seen on axial images 65 through 69. Lymph nodes: No suspicious mesenteric or retroperitoneal lymphadenopathy. Vasculature: Atherosclerotic disease, no aneurysm or dissection Peritoneum / Retroperitoneum: No free fluid or air Bones: Degenerative bony change CT/Abdomen/Pelvis W IV Cont ONLY IMPRESSION: Submucosal thickening and edema in the gastric antrum and pyloric channel consi stent with gastritis. Stable hepatic cysts, stable cystic collection anterior to the right lobe of th e liver again measuring a proximally 9 x 6 cm. No interval change Retained stool throughout the colon with scattered diverticula, no CT evidence of acute diverticulitis No free intraperitoneal fluid, air, or suspicious adenopathy Reading Location: [id number]
[2025-07-10] MEDS: 0.9% Normal Saline (1000mL) 1,000 ML 999 ML IV (15:11)
[2025-07-10 15:14] LABS: Hematocrit 44.1 % (40-54); Hemoglobin 14.8 g/dL (13.0-16.5); Immature Granulocytes Count 0.020 X10^3/uL (0.0-0.0); Mean Corp Hgb Conc 33.6 g/dL (32-36); Mean Corpuscular Volume 90.2 fL (80-94); Mean Platelet Vol. 9.4 fl (6.2-12.0); NRBC Flagged by Analyzer 0 % (0-5); Platelet Count 295 K/mm3 (150-450); RBC Distribution Width CV 13.2 % (11.6-14.6); RBC Distribution Width SD 43.5 fl (35.1-43.9); Red Blood Count 4.89 M/mm3 (4.6-6.2); White Blood Count 7.2 K/mm3 (4.4-11.0)
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
[2025-07-10 15:28] LABS: AST(SGOT) 15 U/L (<=37); Alanine Aminotransfer ALT/SGPT 11 U/L (<=46); Albumin, Serum 4.1 g/dL (3.4-4.8); Alkaline Phosphatase 60 U/L (40-129); Anion Gap 10 (5-15); BUN 14 mg/dL (4-19); BUN/Creat Ratio 13.8 RATIO (10-20); Calcium,Total 9.0 mg/dL (7.6-11.0); Carbon Dioxide 28.0 mmol/L (21.0-32.0); Chloride 99 mmol/L (98-108); Estimated Creatinine Clearance 66.33 ml/min (50-250); Globulin 2.5 g/dL (2.2-4.2); Glucose 99 mg/dL (70-99); Potassium 4.1 mmol/L (3.3-5.1)
[2025-07-10 15:42] LABS: Lipase 482 U/L (13-75)
[2025-07-10 16:31] VITALS: BP 134/72; PULSE 61; RESP 18; TEMP 36.6; O2SAT 97
[2025-07-10] MEDS: Lidocaine 2% Viscous15 ML UDC 15 ML PO (16:38)
[2025-07-10 16:43] LABS: Mucous, Urine 0 SEEN /hpf (<or=2+)
[2025-07-10 17:11] LABS: Color, Urine Yellow (Yellow); Glucose, Dipstick Normal (Normal); Ketone-Dipstick Negative (Negative); Leukocyte Esterase-Dipstick Negative /ul (Negative); Nitrite-Dipstick Negative (Negative); Occult Blood-Urine 10 /ul (Negative); Protein-Dipstick 15 mg/dl (Negative); Specific Gravity, Urine 1.015 (1.002-1.030); Urine Bilirubin Dipstick Negative (Negative)
[2025-07-10] MEDS: Pantoprazole Sodium 40 MG in 0.9% Normal Saline (100mL MB+) 100 ML 300 MG IV (17:14)
[2025-07-10 17:47] LABS: Red Blood Cells-Urine 0-5 SEEN /hpf (0-5); Squamous Epithelial Cells - UA 0-5 SEEN /hpf (0-5)
[2025-07-10 19:14] VITALS: BP 134/72; PULSE 61; RESP 18; TEMP 36.6; O2SAT 97
== END 2025-07-10 17:30 | disposition home or self-care (01) ==
PROVIDERS: Emergency Provider Emergency Medicine; PCP Internal Medicine; Visit Provider Emergency Medicine
DX: K29.70 Gastritis, unspecified, without bleeding (principal); J44.9 Chronic obstructive pulmonary disease, unspecified; K21.9 Gastro-esophageal reflux disease without esophagitis; Z79.899 Other long term (current) drug therapy
CPT/HCPCS: 74177; 80053; 81001; 83690; 85025; 96365; 96375; 99285; Q9967; J2405